=== PATIENT | male | born 1965 | race Caucasian/White ===

== ENCOUNTER 2017-01-19 19:12 | Inpatient (IN) | payer BC ==
[~2017-01-19] VITALS: Ht 177.8 cm; Wt 101.3 kg
[~2017-01-19 19:12] MED LIST: AMITRIPTYLINE H25 MG PO; BACTRIM DS TAB1 EACH PO; GLUCOPHAGE1000 MG PO; JANUVIA100 MG PO; LYRICA150 MG PO; ULTRAM50 MG PO
--- NOTE | 2017-01-21 19:05 | NUR ---
1899 - REPORT CALLED TO KEVIN THOMPSON. [facility]. ORDER TO LEAVE IV IN AND GO BY PRIVATE VEHICLE.
--- NOTE | 2017-01-21 22:14 | NUR ---
2030 - PT LEFT FLOOR VIA WHEEL CHAIR WITHOUT S/S OF DISTRESS. KEVIN THOMPSON FROM [facility] NOTIFIED OF DEPARTURE.
== END 2017-01-21 20:30 | disposition short-term general hospital (02) | DRG 540 ==
LOC: ER 19:12 → MED 20:49
PROVIDERS: ADMIT Internal Medicine
DX: M86.171 Other acute osteomyelitis, right ankle and foot (principal); M00.871 Arthritis due to other bacteria, right ankle and foot; E11.621 Type 2 diabetes mellitus with foot ulcer; L97.519 Non-pressure chronic ulcer of other part of right foot with unspecified severity; Z79.4 Long term (current) use of insulin; D72.829 Elevated white blood cell count, unspecified; L03.031 Cellulitis of right toe; E11.40 Type 2 diabetes mellitus with diabetic neuropathy, unspecified; F17.210 Nicotine dependence, cigarettes, uncomplicated; Z79.84 Long term (current) use of oral hypoglycemic drugs; Z79.899 Other long term (current) drug therapy; Z88.1 Allergy status to other antibiotic agents; Z83.3 Family history of diabetes mellitus; Z80.8 Family history of malignant neoplasm of other organs or systems; Z86.14 Personal history of Methicillin resistant Staphylococcus aureus infection
CPT/HCPCS: 36415; 73718; J1650; J3370; J7050

== ENCOUNTER 2017-01-19 19:12 | Emergency (ER) | payer BC, OTHER | END 2017-01-19 20:48 | disposition critical access hospital (66) | LOC: ER 19:12 | DX: L03.031 Cellulitis of right toe (principal); E11.9 Type 2 diabetes mellitus without complications; Z79.84 Long term (current) use of oral hypoglycemic drugs; Z88.1 Allergy status to other antibiotic agents | CPT/HCPCS: 36415; 96365 ==